=== PATIENT | male | born 1985 | race Caucasian/White ===

== ENCOUNTER 2019-03-09 08:47 | Outpatient (CLI) | payer BC ==
[2012-08-24 23:04] VITALS: BP 141/83
[2019-03-09 09:05] LABS: BASOPHILS % 0.5 % (0.0-1.5); NEUTROPHILS # 9.2 # k/uL (1.4-7.7)
[2019-03-09 09:47] LABS: eGFR (Non-African) > 60
== END 2019-03-09 08:52 ==
LOC: LAB 08:47
PROVIDERS: ATTEND Nurse Practitioner Family
DX: F41.9 Anxiety disorder, unspecified (principal); F32.9 Major depressive disorder, single episode, unspecified; N53.9 Unspecified male sexual dysfunction
CPT/HCPCS: 36415; 80053; 84403; 85025